=== PATIENT | female | born 1980 | race Two or more races ===

== ENCOUNTER 2017-02-26 14:53 | Emergency (ER) | payer OTHER ==
[~2017-02-26] VITALS: Ht 165.1 cm; Wt 61.3 kg
[2017-02-26 14:57] VITALS: BP 111/78
[2017-02-26] MEDS ORDERED: IBUPROFEN 200 MG TABLET ONE (15:18)
[2017-02-26] MEDS ORDERED: IBUPROFEN 200 MG TABLET PO ONE (15:30)
[2017-02-26] MEDS ORDERED: LIDOCAINE 1%, 20ML SQ ONE (15:30)
[2017-02-26] MEDS ORDERED: BACITRACIN ZINC OINT 500U/GM, 0.9 GM ONE (15:56)
== END 2017-02-26 16:15 | disposition home or self-care (01) ==
LOC: ED 16:00
DX: S62.525B Nondisplaced fracture of distal phalanx of left thumb, initial encounter for open fracture (principal); W23.0XXA Caught, crushed, jammed, or pinched between moving objects, initial encounter; Y93.89 Activity, other specified; Y92.89 Other specified places as the place of occurrence of the external cause; Y99.8 Other external cause status
CPT/HCPCS: 29125; 99284

== ENCOUNTER 2017-06-29 18:25 | Inpatient (IN) | payer BC, OTHER ==
[~2017-06-29] VITALS: Ht 167.6 cm; Wt 59.1 kg
[2017-06-29] MEDS ORDERED: ACETAMINOPHEN 325 MG TABLET PO ONE (18:30)
[2017-06-29] MEDS ORDERED: ONDANSETRON 2MG/ML, 2ML IVPush ONE (19:00)
[2017-06-29] MEDS ORDERED: SODIUM CHLORIDE FLUSH 10ML SYR IVF ONE (19:00)
[2017-06-29] MEDS ORDERED: SODIUM CHLORIDE 0.9% 1,000ML IVBOLUS ONE (19:00)
[2017-06-29 19:02] LABS: BASOPHILS # (AUTO) 0.04 x10^3/uL (0-0.1); BASOPHILS % (AUTO) 1 % (0-1); EOSINOPHILS # (AUTO) 0.27 x10^3/uL (0-0.4); EOSINOPHILS % (AUTO) 3 % (1-7); LYMPHOCYTES # (AUTO) 2.72 x10^3/uL (1-3.4); LYMPHOCYTES % (AUTO) 33 % (22-44); MD NO; MEAN CORPUSCULAR HEMOGLOBIN 29.5 pg (27.0-34.8); MEAN CORPUSCULAR HGB CONC 33.3 g/dL (32.4-35.8); MEAN CORPUSCULAR VOLUME 88.7 fL (80-100); MEAN PLATELET VOLUME 8.6 fL (7.4-10.4); MONOCYTES # (AUTO) 0.58 x10^3/uL (0.2-0.8); MONOCYTES % (AUTO) 7 % (2-9); NEUTROPHILS % (AUTO) 57 % (42-75); PLATELET COUNT 267 x10^3/uL (130-400); RED BLOOD COUNT 4.99 x10^6/uL (3.82-5.3)
[2017-06-29] MEDS ORDERED: MORPHINE SULFATE 4 MG/ML, 1ML ONE ×2 (19:04→20:42)
[2017-06-29] MEDS ORDERED: ONDANSETRON 2MG/ML, 2ML ONE (19:04)
[2017-06-29 19:08] LABS: MICROSCOPIC NOT IND
[2017-06-29] MEDS: MORPHINE SULFATE 4 MG/ML, 1ML IVPush PRN ×2 (19:09→20:45)
[2017-06-29 19:12] LABS: ALANINE AMINOTRANSFERASE 17 U/L (12-78); ANION GAP 7 mmol/L (5-15); CALCIUM 8.6 mg/dL (8.5-10.1); CHLORIDE 108 mmol/L (98-107); CULTURE INDICATED? NO
[2017-06-29 19:17] LABS: ALKALINE PHOSPHATASE 75 U/L (45-117); BILIRUBIN,TOTAL 0.3 mg/dL (0.2-1.0); CREATININE 0.78 mg/dL (0.55-1.02); TOTAL PROTEIN 7.9 g/dL (6.4-8.2)
[2017-06-29] MEDS ORDERED: OMNIPAQUE 350 MG/ML, 100ML BOTTLE ONE (19:49)
[2017-06-29] MEDS ORDERED: DICYCLOMINE 10 MG/ML, 2ML ONE (20:22)
[2017-06-29] MEDS ORDERED: KETOROLAC 30 MG/1 ML ONE (20:22)
[2017-06-29] MEDS ORDERED: DICYCLOMINE 10 MG/ML, 2ML IM ONE (20:30)
[2017-06-29] MEDS ORDERED: KETOROLAC 30 MG/1 ML IVPush ONE (20:30)
[2017-06-29] MEDS ORDERED: DOCUSATE 100 MG CAPSULE PO PRN (22:00)
[2017-06-29] MEDS ORDERED: ONDANSETRON 2MG/ML, 2ML IVPush PRN (22:00)
[2017-06-29] MEDS ORDERED: POLYETHYLENE GLYCOL 17 GM PACKET PO PRN (22:00)
[2017-06-29] MEDS ORDERED: ACETAMINOPHEN 325 MG TABLET PO PRN (22:00)
[2017-06-29] MEDS: OXYcodone IR 5MG TABLET PO PRN (23:18)
[2017-06-29] MEDS: NS + 20MEQ KCL 1,000 ML IV SCH (23:19)
[2017-06-29] MEDS: ENOXAPARIN 40 MG/0.4 ML SQ SCH (23:19)
[2017-06-30 01:39] VITALS: BP 108/72
[2017-06-30 02:00] VITALS: BP 112/78
[2017-06-30] MEDS: MORPHINE SULFATE 4 MG/ML, 1ML IVPush PRN ×2 (03:18→11:18)
[2017-06-30 06:56] VITALS: BP 92/53
[2017-06-30] MEDS: OXYcodone IR 5MG TABLET PO PRN ×3 (08:22→19:22)
[2017-06-30] MEDS: NS + 20MEQ KCL 1,000 ML IV SCH (08:22)
[2017-06-30] MEDS ORDERED: MAALOX/HYOSCYAMINE/LIDOCAINE 45 ML BTL PO ONE (13:00)
[2017-06-30] MEDS: PANTOPROZOLE 40MG TABLET PO SCH (13:35)
[2017-06-30] MEDS: LACTOBACILLUS CHEW TABLET PO SCH ×3 (13:35→20:57)
[2017-06-30 13:56] VITALS: BP 98/63
[2017-06-30 19:31] VITALS: BP 89/51
[2017-06-30] MEDS: ENOXAPARIN 40 MG/0.4 ML SQ SCH (20:57)
[2017-07-01 01:32] VITALS: BP 97/55
[2017-07-01] MEDS: OXYcodone IR 5MG TABLET PO PRN (06:23)
[2017-07-01 08:18] VITALS: BP 94/60
[2017-07-01] MEDS: PANTOPROZOLE 40MG TABLET PO SCH (08:54)
[2017-07-01] MEDS: LACTOBACILLUS CHEW TABLET PO SCH (08:54)
[2017-07-01] MEDS ORDERED: ACID1TAB7 PO (09:43)
[2017-07-01] MEDS ORDERED: PANT40TA5 PO (09:43)
[2017-07-01] MEDS ORDERED: ONDA4TAB13 SL (09:45)
== END 2017-07-01 11:55 | disposition home or self-care (01) | DRG 392 ==
LOC: ED 20:38 → SUATTDRO 21:20 → EDIP 21:31 → 3NE 22:55 → DCLOUNGE 07-01 11:38
PROVIDERS: ADMIT Family Medicine; ATTEND Family Medicine
DX: R10.12 Left upper quadrant pain (principal); F41.9 Anxiety disorder, unspecified; Z90.49 Acquired absence of other specified parts of digestive tract; G89.29 Other chronic pain; N89.8 Other specified noninflammatory disorders of vagina; N92.1 Excessive and frequent menstruation with irregular cycle; K58.0 Irritable bowel syndrome with diarrhea
CPT/HCPCS: 36415; 74177; 80053; 81003; 83690; 84703; 85025; 86677; 93005; 96361; 96372; 96374; 96375; 96376; J1650; J1885; J2405; J3480; Q9967; J0500; J7030

== ENCOUNTER 2019-11-09 09:26 | Emergency (ER) | payer BC, OTHER ==
[~2019-11-09] VITALS: Ht 167.6 cm; Wt 69.7 kg
[~2019-11-09 09:26] MED LIST: ACID1TAB7 PO; ONDA4TAB13 SL; PANT40TA5 PO
--- NOTE | 2019-11-09 09:58 | NUR ---
PT HAS CO RLQ ABDOMINAL W N/V STARTING FEW DAYS AGO. TENDER TO PALPATION. PT CONCERNED IT IS HER APPENDIX. HAD GALLBLADDER REMOVED 6 YEARS AGO. NO OTHER HEALTH HISTORY.
[2019-11-09] MEDS ORDERED: OXYcodone/APAP 5/325MG TABLET ONE (10:11)
[2019-11-09] MEDS ORDERED: ONDANSETRON ODT 4 MG ONE (10:11)
[2019-11-09] MEDS ORDERED: ONDANSETRON ODT 4 MG PO ONE (10:30)
[2019-11-09] MEDS ORDERED: OXYcodone/APAP 5/325MG TABLET PO ONE (10:30)
--- NOTE | 2019-11-09 10:35 | NUR ---
MEDICATED PER ORDERS. [facility] SENT. VSS
[2019-11-09 10:40] LABS: BASOPHILS # (AUTO) 0.04 x10^3/uL (0-0.1); BASOPHILS % (AUTO) 1 % (0-1); EOSINOPHILS # (AUTO) 0.43 x10^3/uL (0-0.4); EOSINOPHILS % (AUTO) 6 % (1-7); LYMPHOCYTES # (AUTO) 1.57 x10^3/uL (1-3.4); LYMPHOCYTES % (AUTO) 20 % (22-44); MD NO; MEAN CORPUSCULAR HEMOGLOBIN 29.4 pg (27.0-34.8); MEAN CORPUSCULAR HGB CONC 32.9 g/dL (32.4-35.8); MEAN CORPUSCULAR VOLUME 89.5 fL (80-100); MEAN PLATELET VOLUME 8.6 fL (7.4-10.4); MONOCYTES # (AUTO) 0.43 x10^3/uL (0.2-0.8); MONOCYTES % (AUTO) 5 % (2-9); NEUTROPHILS # (AUTO) 5.48 x10^3/uL (1.8-6.8); NEUTROPHILS % (AUTO) 69 % (42-75); PLATELET COUNT 263 x10^3/uL (130-400); RED BLOOD COUNT 4.94 x10^6/uL (3.82-5.3)
[2019-11-09 10:42] LABS: MICROSCOPIC AUTO
[2019-11-09 10:49] LABS: ALANINE AMINOTRANSFERASE 23 U/L (12-78); ALBUMIN 3.9 g/dL (3.4-5.0); ANION GAP 9 mmol/L (5-15); CALCIUM 9.2 mg/dL (8.5-10.1); CHLORIDE 107 mmol/L (98-107)
[2019-11-09 10:52] LABS: ALKALINE PHOSPHATASE 88 U/L (45-117); BILIRUBIN,TOTAL 0.3 mg/dL (0.2-1.0); CREATININE 0.83 mg/dL (0.55-1.02)
[2019-11-09 11:11] VITALS: BP 114/73
--- NOTE | 2019-11-09 11:11 | NUR ---
Patient/Caregiver given discharge instructions and they have confirmed that they understand the instructions. Patient ambulatory with steady gait.
== END 2019-11-09 11:13 | disposition home or self-care (01) ==
LOC: ED 09:57
DX: N30.00 Acute cystitis without hematuria (principal); R11.2 Nausea with vomiting, unspecified; Z90.49 Acquired absence of other specified parts of digestive tract
CPT/HCPCS: 36415; 76770; 80053; 81001; 83690; 85025; 87077; 87086; 99284; Q0162